=== PATIENT | female | born 1945 | race Caucasian/White ===

== ENCOUNTER 2018-01-08 06:48 | Day surgery (SDC) | payer MEDICARE, BC ==
[2018-01-07 08:20] VITALS: BMI 20.7
[2018-01-08] MEDS ORDERED: CEFAZOLIN/Water 2 GM/20 ML SYRINGE ONE (08:24)
[2018-01-08] MEDS ORDERED: Midazolam HCl 2 mg/2 ml Vial ONE (08:29)
[2018-01-08] MEDS ORDERED: Fentanyl 100 MCG/2 ML VIAL ONE (08:29)
[2018-01-08 08:33] LABS: #Basophils 0.1 thou/uL (0.0-0.2); #Eosinphils 0.2 thou/uL (0.0-0.7); #Lymphocytes 1.2 thou/uL (1.20-3.40); #Monocytes 0.6 thou/uL (0.11-0.59); #Neutrophils 3.8 thou/uL (1.40-6.50); %Basophils 1.1 % (0.0-1.0); %Eosinophils 4.1 % (0.0-10.0); %Lymphocytes 20.6 % (21.0-51.0); %Monocytes 9.8 % (0.0-10.0); %Neutrophils 64.5 % (42.0-75.0); Hemoglobin 13.2 g/dL (12.0-16.0); Mean Corpuscular HGB CONC 33.1 g/dL (32.0-36.0); Mean Corpuscular Hemoglobin 29.9 pg (27.0-31.0); Mean Corpuscular Volume 90.5 fL (78.0-98.0); Mean Platelet Volume 6.6 fL (7.4-10.4); Platelet Count 328 thou/uL (130-400); RBC Distribution Width 12.5 % (11.5-14.5); Red Blood Cell (RBC) Count 4.43 mill/uL (4.20-5.40); White Blood Cell (WBC) Count 5.9 thou/uL (4.8-10.8)
[2018-01-08] MEDS ORDERED: Lidocaine 2% Jelly 5 ML TUBE ONE (08:34)
[2018-01-08 08:52] LABS: Anion Gap 8 mmol/L (10-20); BUN (Urea Nitrogen) 9 mg/dL (9.8-20.1); Calc. Creatinine Clearance 70 mL/min (70-130); Calcium 9.7 mg/dL (7.8-10.44); Carbon Dioxide 32 mmol/L (23-31); Chloride 103 mmol/L (98-107); Estimated GFR-MDRD 84; Glucose 106 mg/dL (83-110); Potassium 4.3 mmol/L (3.5-5.1); Sodium 139 mmol/L (136-145)
[2018-01-08] MEDS ORDERED: Ropivacaine HCl/PF 1,100 MG in Sodium Chloride 0.9% 440 ML NERVE BLCK SCH (09:03)
[2018-01-08] MEDS ORDERED: traMADol HCl 50 MG TAB PO PRN ×2 (09:03)
[2018-01-08] MEDS ORDERED: Zolpidem Tartrate 5 MG TAB PO PRN (09:03)
[2018-01-08] MEDS ORDERED: Promethazine HCl 25 MG/ML VIAL IM PRN (09:03)
[2018-01-08] MEDS ORDERED: HYDROcodone/Acetaminophen 10/325 mg Tablet PO PRN ×2 (09:03)
[2018-01-08] MEDS ORDERED: Ondansetron HCl/PF 4 MG/2 ML Vial IVP PRN (09:03)
[2018-01-08] MEDS ORDERED: Fentanyl 100 MCG/2 ML VIAL IV PRN (09:04)
[2018-01-08] MEDS ORDERED: Ropivacaine 0.5% HCl/PF (150 MG/30 ML VIAL) ONE (09:18)
[2018-01-08] MEDS ORDERED: Ropivacaine 0.2% HCl/PF (40 MG/20 ML VIAL) ONE (09:18)
[2018-01-08] MEDS ORDERED: Ondansetron HCl/PF 4 MG/2 ML Vial ONE (10:28)
[2018-01-08] MEDS ORDERED: PHENYLEPHRINE-NS 100 MCG/ML 10 ML SYRINGE ONE (10:28)
[2018-01-08] MEDS ORDERED: PROPOFOL 200 MG/20 ML VIAL ONE (10:28)
[2018-01-08] MEDS ORDERED: Dexamethasone 20 MG/5 ML VIAL ONE (10:28)
[2018-01-08] MEDS ORDERED: Glycopyrrolate 0.2 MG/ML 5 ML SYRINGE ONE (10:28)
[2018-01-08] MEDS ORDERED: ePHEDrine/0.9% NaCl/PF SYRINGE 50 mg/10 ml ONE (10:28)
--- NOTE | 2018-01-08 11:25 | OP ---
DATE OF PROCEDURE: 01/08/2018. PREOPERATIVE DIAGNOSES: Left shoulder impingement with massive cuff tear, acromioclavicular joint ar thritis, and biceps tendon tear. POSTOPERATIVE DIAGNOSES: Left shoulder impingement with massive cuff tear, acromioclavicular joint a rthritis and biceps tendon tear. PROCEDURE PERFORMED: Left shoulder open subacromial decompression followed by open rotator cuff repa ir, followed by open distal clavicle excision followed by open biceps tenotomy. SURGEON: Todd Briones M.D. TREE T[employer]ING LABORER: Kyle Oconnor PA-C. BLOOD LOSS: 50 mL COMPLICATIONS: None. IMPLANTS: We used three triple loaded titanium anchors and two [employer] 4.75 mm SwiveLocks. All these with [employer] devices. ANESTHESIA: She had general anesthetic, she had a preoperative block. CONDITION: She went to the recovery room in stable condition. INDICATIONS: A 72-year-old active female who was found to have significant pain, weakness, and a lar ge to massive cuff tear. At this time, she opted to have repair. After appropriate consent forms we re explained and signed, she was taken to the operating room and at this time was given general anest hetic. Once the level of anesthesia was appropriate, she was placed in modified beach chair position with all bony prominences well-padded and at this time, the left shoulder and upper extremity are pr epped and draped in a standard surgical fashion. Incision was made with a 10 blade down through skin . Bovie was used to coagulate any brisk venous bleeding. Full thickness periosteal flap was taken t o expose the anterior acromion and this was taken medially to expose the AC joint. Hohmann's were pl aced and 1 cm distal clavicle was removed. Edges were smoothed off with a rasp and bone wax was plac ed on the bleeding cancellous bone. At this time, the acromion was noted to have an os acromiale and was felt to be mobile. Therefore, we were very careful in not stripping too much of the acromion so ft tissue. However, we did perform a small anterior inferior acromioplasty using the saw. Once this was done, we were able to visualize our underlying cuff tear. The bursa was removed and at this willem e, multiple traction sutures were placed and finger dissection was used to free up any adhesions supe rior and inferior to the cuff. Biceps tendon was found and the large hole was tagged and was found t o actually had been torn off with a small tag of the biceps still attached to the superior labrum and this had adhered itself to the undersurface of the cuff. This was freed up. The small tag of the t endon was removed off of the superior labrum with the scissor and at this time, we freed up our bicep s tendon down to the bicipital groove. In doing so, we realized that this tendon was of horrible tricia lity with intratendinous tearing throughout and really this was not in any portion of the tendon that I felt would be good enough to perform a tenodesis. Therefore, tenotomy was performed. At this willem e, the edges of the rotator cuff were evaluated, cleaned up with scissors or a knife. This patient w as found to have a significant subscapularis tear involving approximately 50%-60% of the subscapulari s, the entire supra and infraspinatus going back to the teres. All the soft tissue was removed off o f the tuberosity for reattachment and at this time, I decided to medialize the supra and infraspinatu s by approximately 0.5 cm using curette and rongeur to remove the cartilage. We went about performin g our subscapularis repair first and once the insertion site on the tuberosity was cleared off of any soft tissue remnant, triple loaded anchor was placed and the sutures were ran in a mattress fashion to repair our subscapularis. This set our cuff. We were then able to place two more triple loaded a nchors and ran the sutures through the remaining cuff in mattress fashion. Again, these were tied. We then used two 4.75 Bio[employer]posite SwiveLocks for double row repair incorporating not only supra and infraspinatus sutures, but also the subscapularis sutures as well. This gave us a nice repair. Ther e was tension free with the elbow at the side, we were able to take the arm up to over 150 degrees of forward flexion with no tension noted and the patient had 30 degrees of external rotation sitting at the table. At this time, we thoroughly irrigated and dried. We then placed multiple interrupted Et hibond sutures through the acromion, again being careful to place these anterior to our os acromiale. We then ran a Vicryl to close the soft tissue sleeve over top of this repair. A 2-0 Vicryl and awilda gical celia were used on skin. Bulky sterile dressing was applied. The patient was then placed in a sling. She was awakened and taken to the recovery room in stable condition. All counts were be ect at the end of the case. She did receive preoperative IV antibiotics.
--- NOTE | 2018-01-10 15:07 | EKG ---
Test Reason : PREOP Blood Pressure : / mmHG Vent. Rate : 065 BPM Atrial Rate : 065 BPM P-R Int : 178 ms QRS Dur : 130 ms QT Int : 448 ms P-R-T Axes : 042 -43 095 degrees QTc Int : 465 ms Normal sinus rhythm Left axis deviation Left bundle branch block Abnormal ECG When compared with ECG of 08-AUG-2016 09:05, Premature ventricular complexes are no longer Present Premature atrial complexes are no longer Present Left bundle branch block is now Present Confirmed by LYNNE COLLINS MD ([id number]) on 01/10/2018 3:07:09 PM Referred By: TRANG Confirmed By:LYNNE COLLINS MD
== END 2018-01-08 13:00 | disposition home or self-care (01) ==
LOC: SDC 06:48
PROVIDERS: ATTEND Orthopaedic Surgery
PROC: 0LQ20ZZ Repair Left Shoulder Tendon, Open Approach (ICD-10-PCS; principal; 2018-01-08)
PROC: 0RNK0ZZ Release Left Shoulder Joint, Open Approach (ICD-10-PCS; 2018-01-08)
PROC: 0LS20ZZ Reposition Left Shoulder Tendon, Open Approach (ICD-10-PCS; 2018-01-08)
DX: M75.102 Unspecified rotator cuff tear or rupture of left shoulder, not specified as traumatic (principal); S46.212A Strain of muscle, fascia and tendon of other parts of biceps, left arm, initial encounter; M19.012 Primary osteoarthritis, left shoulder; Z88.2 Allergy status to sulfonamides
CPT/HCPCS: 23130; 23412; 23430; 80048; 85025; 93005; C1713 ×3; 93010; J1100; J2250; J2405; J2704; J2795; J3010; J3370; J7050